=== PATIENT | male | born 1990 ===

== ENCOUNTER 2017-09-24 16:29 | Emergency (ER) | payer OTHER, BC ==
[2017-09-24 17:03] VITALS: TEMP 98.2; BMI 40.1
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
[2017-09-24 18:52] VITALS: BP 144/80; PULSE 70; RESP 16; O2SAT 99
== END 2017-09-24 18:59 | disposition home or self-care (01) ==
LOC: ED 16:29
DX: M25.512 Pain in left shoulder (principal)

== ENCOUNTER 2018-03-05 19:54 | Emergency (ER) | payer OTHER, BC ==
[2018-03-05 19:54] VITALS: BMI 40.1
[2018-03-05 20:08] VITALS: BP 141/89; PULSE 92; RESP 18; TEMP 97.9; O2SAT 98
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
== END 2018-03-05 20:34 | disposition home or self-care (01) ==
LOC: ED 19:54
DX: Z00.00 Encounter for general adult medical examination without abnormal findings (principal)